=== PATIENT | male | born 1940 | race Caucasian/White ===

== ENCOUNTER → 2016-12-30 | Outpatient (CLI) | payer OTHER, BC ==
[2016-12-30 16:17] LABS: VITAMIN D 25-HYDROXY 32.6 NG/ML (30-100)
== END ==
LOC: MOB LAB 14:33
PROVIDERS: ATTEND Specialist
DX: N40.1 Benign prostatic hyperplasia with lower urinary tract symptoms (principal)
CPT/HCPCS: 36415; 82306; 84153; 84403